=== PATIENT | female | born 1985 | race African-American/Black ===

== ENCOUNTER 2017-01-13 14:08 | Emergency (ER) | payer OTHER ==
[~2017-01-13] VITALS: Ht 167.6 cm; Wt 70.0 kg
[~2017-01-13 14:08] MED LIST: LORA-441 PO; OLAN5TAB5 PO
[2017-01-13 14:16] VITALS: Ht 167.6 cm; Wt 70.0 kg
--- NOTE | 2017-01-13 15:20 | ERD ---
ER Documentation Chief Complaint Date/Time DATE: 01/13/17 TIME: 15:15 Chief Complaint Medication refill for his psych medication HPI Patient is a 31-year-old female with a past medical history of schizophrenia who presents to the emergency department for concerns of a medication refill. Patient states she moved here 1 month ago from [place]. Patient states her last 3 weeks she has been out of her Zyprexa after she lost her purse. Patient is requesting refill of Zyprexa at this time. Patient states she takes 5 mg in the morning and 10 mg at night. Patient states she does have an appointment with a mental health provider next months located in [place]. Patient denies any suicidal or homicidal ideations at this time. Patient does report some mild abdominal pain as well as nausea secondary to feeling anxious. Patient denies any fevers, chills, vomiting, chest pain, shortness of breath, LOC. She has no other concerns or complaints at this time. Of note, patient states she had her last prescription filled at [facility] and [address] [place] [address] in [place]. ROS All systems reviewed and are negative except as per history of present illness. Medications Home Meds Active Scripts Olanzapine* (Zyprexa*) 10 Mg Tablet, 10 MG PO bedtime, #30 TAB Prov:KURT GUILLEN PA-C 01/13/17 Reported Medications Olanzapine* (Zyprexa*) 10 Mg Tablet, 10 MG PO QHS, #30 TAB 01/13/17 Lorazepam* (Ativan*) 2 Mg Tablet, 2 MG PO DAILY Y for NEEDED, #30 TAB 01/13/17 Discontinued Scripts Lorazepam* (Ativan*) 0.5 Mg Tablet, 0.5 MG PO BID Y for ANXIETY, #60 TAB Prov:VANNSEA MEDINA DO 04/29/15 Olanzapine* (Zyprexa*) 5 Mg Tablet, 5 MG PO BID, #60 TAB Prov:VANNESA MEDINA DO 04/29/15 Allergies Allergies: Coded Allergies: No Known Allergy (Unverified , 01/13/17) PMhx/Soc Hx Miscellaneous Medical Probl: Yes (BIPOLAR/ SCHIZOPHRENIA) Hx Alcohol Use: No Hx Substance Use: No Hx Tobacco Use: No Physical Exam Vitals Vital Signs Date Time Temp Pulse Resp B/P Pulse Ox O2 Delivery O2 Flow Rate FiO2 01/13/17 14:16 98.1 65 20 129/81 98 Physical Exam GENERAL: Well-developed, well-nourished female. Speaking in full sentences. Appears in no acute distress. HEAD: Normocephalic, atraumatic. EYES: Pupils are equally reactive bilaterally. EOMs grossly intact. No conjunctival erythema. ENT: Moist mucous membranes. No uvula deviation. No kissing tonsils. NECK: Supple. No meningismus. Normal range of motion of the neck. LUNG: Clear to auscultation bilaterally. No rhonchi, wheezing, rales or coarse breath sounds. HEART: Regular rate and rhythm. No murmurs, rubs or gallops. ABDOMEN: No scars, ecchymosis or rashes noted. Soft, nontender, and nondistended. Positive bowel sounds in all four quadrants. No rebound tenderness , no guarding. (-) McBurney's point tenderness. EXTREMITIES: Equal pulses bilaterally. No peripheral clubbing, cyanosis or edema. No unilateral leg swelling. NEUROLOGIC: Alert and oriented. Moving all four extremities without any difficulty. Normal speech. Steady gait. SKIN: Normal color. Warm and dry. No rashes or lesions. PSYCH: Normal affect and mood. No hallucinations or delusions at this time. No suicidal or homicidal ideations. Procedures/MDM MEDICAL DECISION MAKING: Patient is a 31-year-old female who presents to the emergency department for medication refill. Patient has a history of schizophrenia. Patient denies any suicidal homicidal ideations at this time. Patient states she stopped taking her Zyprexa 3 weeks ago after she lost her purse. Patient does have an appointment pending with a mental health provider next month. Vital signs were reviewed. Patient is afebrile. Patient was not hypoxic. I spoke with the ED pharmacy associate to assist me in verifying the patient's prescriptions. [facility] as well as [facility] were called. Per records provided by ED pharmacy grad intern, Wang Bullard, patient last filled Zyprexa 10 mg to be taken daily bedtime on 12-07-16. At this time advised patient that I will only refill this prescription. Patient is advised to follow-up with her primary care physician and/or psychiatrist for any additional refills. Patient will be provided with psychiatry referral information. Low suspicion for homicidal or suicidal ideations at this time. PRESCRIPTION: Zyprexa DISCHARGE: At this time, patient is stable for discharge and outpatient management. Patient was advised to return to the emergency department for any new or worsening concerns including suicidal ideations and homicidal ideations. Patient was given referral information for psychiatry. I have instructed the patient to follow-up with his/her primary care physician in 1-2 days. I have discussed with the patient the possibility of needing to see a specialist for further workup and imaging studies if symptoms persist. I have instructed the patient to promptly return to the ER for any new or worsening symptoms including increased pain, fever, nausea, vomiting, weakness or LOC. The patient and/or family expressed understanding of and agreement with this plan. All questions were answered. Home care instructions were provided. Disclaimer: Inadvertent spelling and grammatical errors are likely due to EHR/ dictation software use and do not reflect on the overall quality of patient care. Also, please note that the electronic time recorded on this note does not necessarily reflect the actual time of the patient encounter. Departure Diagnosis: Primary Impression: Medication refill Condition: Stable Patient Instructions: Taking Medicine Safely Referrals: LEXII COX MARINA MD MATIP, CECILE N. MD MOSTAFAVI,SHAAN BLAKELY,TRANG Sloan MD [facility] YOU HAVE RECEIVED A MEDICAL SCREENING EXAM AND THE RESULTS INDICATE THAT YOU DO NOT HAVE A CONDITION THAT REQUIRES URGENT TREATMENT IN THE EMERGENCY DEPARTMENT. FURTHER EVALUATION AND TREATMENT OF YOUR CONDITION CAN WAIT UNTIL YOU ARE SEEN IN YOUR DOCTORS OFFICE WITHIN THE NEXT 1-2 DAYS. IT IS YOUR RESPONSIBILITY TO MAKE AN APPOINTMENT FOR FOLOW-UP CARE. IF YOU HAVE A PRIMARY DOCTOR --you should call your primary doctor and schedule an appointment IF YOU DO NOT HAVE A PRIMARY DOCTOR YOU CAN CALL OUR PHYSICIAN REFERRAL HOTLINE AT IF YOU CAN NOT AFFORD TO SEE A PHYSICIAN YOU CAN CHOSE FROM THE FOLLOWING [facility] CLINICS [facility] [address] [facility] [address] [facility] [facility] [address] [facility] [address] [facility]. [facility] [address] [facility]. [facility] [address] [facility]. [facility] YOU HAVE RECEIVED A MEDICAL SCREENING EXAM AND THE RESULTS INDICATE THAT YOU DO NOT HAVE A CONDITION THAT REQUIRES URGENT TREATMENT IN THE EMERGENCY DEPARTMENT. FURTHER EVALUATION AND TREATMENT OF YOUR CONDITION CAN WAIT UNTIL YOU ARE SEEN IN YOUR DOCTORS OFFICE WITHIN THE NEXT 1-2 DAYS. IT IS YOUR RESPONSIBILITY TO MAKE AN APPOINTMENT FOR FOLOW-UP CARE. IF YOU HAVE A PRIMARY DOCTOR --you should call your primary doctor and schedule and appointment IF YOU DO NOT HAVE A PRIMARY DOCTOR YOU CAN CALL OUR PHYSICIAN REFERRAL HOTLINE AT . IF YOU CAN NOT AFFORD TO SEE A PHYSICIAN YOU CAN CHOSE FROM THE FOLLOWING [facility]: [facility] [address] [place] [address] [facility] [address] [place] [address] [facility] [address] [place] [address] Additional Instructions: Call your primary care doctor TOMORROW for an appointment during the next 1-2 days.See the doctor sooner or return here if your condition worsens before your appointment time. Follow-up with your mental health provider as scheduled next month. KURT GUILLEN PA-C Jan 13, 2017 15:20
[2017-01-13] MEDS ORDERED: OLAN10TA7 PO ×2 (15:25→15:37)
[2017-01-13] MEDS ORDERED: LORA-444 PO (15:25)
== END 2017-01-13 15:45 | disposition home or self-care (01) ==
LOC: FTE 14:08
DX: Z76.0 Encounter for issue of repeat prescription (principal)
CPT/HCPCS: 99281